=== PATIENT | male | born 1980 | race Caucasian/White ===

== ENCOUNTER 2023-04-17 00:38 | Emergency (ER) | payer BC, OTHER ==
[2023-04-17 01:01] VITALS: BP 125/85; PULSE 95; RESP 18; TEMP 97.5; BMI 29.2
== END 2023-04-17 02:03 | disposition home or self-care (01) ==
LOC: JER 00:38
DX: J02.9 Acute pharyngitis, unspecified (principal); R05.9 Cough, unspecified; U07.1 COVID-19
CPT/HCPCS: 0241U-QW; 99283-25